=== PATIENT | female | born 1985 | race Caucasian/White ===

== ENCOUNTER 2018-04-27 14:32 | Emergency (ER) | payer MEDICAID ==
[~2018-04-27] VITALS: Ht 175.3 cm; Wt 55.8 kg
[~2018-04-27 14:32] MED LIST: IBUP-1222 PO; OXYC-302 PO
[2018-04-27] MEDS ORDERED: ONDANSETRON ODT 4 MG ONE (14:56)
[2018-04-27] MEDS ORDERED: ONDANSETRON ODT 4 MG PO ONE (15:00)
[2018-04-27 15:30] LABS: MICROSCOPIC INDICATED
[2018-04-27 15:31] LABS: CULTURE INDICATED? YES
[2018-04-27 15:35] LABS: BASOPHILS # (AUTO) 0.12 x10^3/uL (0-0.1); BASOPHILS % (AUTO) 1 % (0-1); EOSINOPHILS # (AUTO) 0.03 x10^3/uL (0-0.4); EOSINOPHILS % (AUTO) 0 % (1-7); LYMPHOCYTES # (AUTO) 2.11 x10^3/uL (1-3.4); LYMPHOCYTES % (AUTO) 25 % (22-44); MD NO; MEAN PLATELET VOLUME 8.9 fL (7.4-10.4); MONOCYTES # (AUTO) 0.67 x10^3/uL (0.2-0.8); MONOCYTES % (AUTO) 8 % (2-9); NEUTROPHILS # (AUTO) 5.47 x10^3/uL (1.8-6.8); NEUTROPHILS % (AUTO) 65 % (42-75); PLATELET COUNT 285 x10^3/uL (130-400); RED BLOOD COUNT 4.31 x10^6/uL (3.82-5.3)
[2018-04-27 15:42] LABS: ALBUMIN 3.8 g/dL (3.4-5.0); ANION GAP 5 mmol/L (5-15); CALCIUM 8.6 mg/dL (8.5-10.1); CHLORIDE 110 mmol/L (98-107)
[2018-04-27 15:46] LABS: ALANINE AMINOTRANSFERASE 20 U/L (12-78); ALKALINE PHOSPHATASE 51 U/L (45-117); BILIRUBIN,TOTAL 0.8 mg/dL (0.2-1.0); CREATININE 0.78 mg/dL (0.55-1.02); TOTAL PROTEIN 6.7 g/dL (6.4-8.2)
[2018-04-27] MEDS ORDERED: PHENAZOPYRIDINE 200 MG TABLET PO ONE (16:00)
[2018-04-27] MEDS ORDERED: PHENAZOPYRIDINE 100 MG TABLET ONE (16:07)
[2018-04-27 16:35] VITALS: BP 112/64
== END 2018-04-27 16:37 | disposition home or self-care (01) ==
LOC: ED 16:25
DX: N30.01 Acute cystitis with hematuria (principal); Z76.0 Encounter for issue of repeat prescription
CPT/HCPCS: 36415; 80053; 81001; 81025; 85025; 87077; 87086; 99284; Q0162

== ENCOUNTER 2018-12-25 12:10 | Emergency (ER) | payer MEDICAID ==
[~2018-12-25] VITALS: Ht 175.3 cm; Wt 57.9 kg
[2018-12-25 13:13] LABS: BASOPHILS # (AUTO) 0.08 x10^3/uL (0-0.1); BASOPHILS % (AUTO) 1 % (0-1); EOSINOPHILS # (AUTO) 0.02 x10^3/uL (0-0.4); EOSINOPHILS % (AUTO) 0 % (1-7); LYMPHOCYTES # (AUTO) 2.05 x10^3/uL (1-3.4); LYMPHOCYTES % (AUTO) 21 % (22-44); MD NO; MEAN CORPUSCULAR HEMOGLOBIN 34.1 pg (27.0-34.8); MEAN CORPUSCULAR HGB CONC 34.5 g/dL (32.4-35.8); MEAN CORPUSCULAR VOLUME 98.8 fL (80-100); MEAN PLATELET VOLUME 8.6 fL (7.4-10.4); MONOCYTES # (AUTO) 0.71 x10^3/uL (0.2-0.8); MONOCYTES % (AUTO) 7 % (2-9); NEUTROPHILS % (AUTO) 71 % (42-75); PLATELET COUNT 291 x10^3/uL (130-400); RED BLOOD COUNT 4.17 x10^6/uL (3.82-5.3); RED CELL DISTRIBUTION WIDTH 13.6 % (9.6-15.2)
[2018-12-25 13:23] LABS: ALBUMIN 4.3 g/dL (3.4-5.0); ANION GAP 5 mmol/L (5-15); CALCIUM 9.1 mg/dL (8.5-10.1); CHLORIDE 110 mmol/L (98-107)
[2018-12-25] MEDS ORDERED: HYDROcodone/APAP 5/325 TABLET PO PRN (15:00)
[2018-12-25] MEDS ORDERED: KETOROLAC 30 MG/1 ML IM ONE (15:00)
[2018-12-25] MEDS ORDERED: KETOROLAC 30 MG/1 ML ONE (15:20)
[2018-12-25] MEDS ORDERED: HYDROcodone/APAP 5/325 TABLET ONE (15:21)
[2018-12-25] MEDS ORDERED: CEFTRIAXONE 250 MG IM ONE (16:00)
[2018-12-25] MEDS ORDERED: AZITHROMYCIN 250 MG TABLET PO ONE (16:00)
--- NOTE | 2018-12-25 16:08 | NUR ---
PELVIC EXAM COMPLETED, PT TOLERATED WELL
[2018-12-25 16:09] LABS: HCG UR SG 1.017 (1.003-1.030); MICROSCOPIC INDICATED
[2018-12-25 16:10] LABS: CULTURE INDICATED? YES
[2018-12-25 16:21] LABS: CLUE CELLS PRESENT (NONE SEEN)
[2018-12-25 16:22] LABS: WET PREP WBCS MODERATE (FEW)
[2018-12-25] MEDS ORDERED: CEFTRIAXONE 250 MG ONE (16:35)
[2018-12-25] MEDS ORDERED: AZITHROMYCIN 250 MG TABLET ONE (16:35)
[2018-12-25] MEDS ORDERED: LIDOCAINE-MPF 1%, 5ML ONE (16:35)
[2018-12-25] MEDS ORDERED: metroNIDAZOLE 500 MG TABLET ONE (16:59)
[2018-12-25] MEDS ORDERED: metroNIDAZOLE 500 MG TABLET PO ONE (17:00)
[2018-12-25 17:19] VITALS: BP 92/59
== END 2018-12-25 17:21 | disposition home or self-care (01) ==
LOC: ED 16:03
DX: N76.0 Acute vaginitis (principal); B96.89 Other specified bacterial agents as the cause of diseases classified elsewhere; F17.200 Nicotine dependence, unspecified, uncomplicated
CPT/HCPCS: 36415; 80048; 81001; 81025; 82040; 84703; 85025; 87077; 87086; 87186; 87210; 87491; 87591; 87808; 96372; 99284; J0696; J1885

== ENCOUNTER → 2019-02-28 | Outpatient (CLI) | payer MEDICAID ==
[~2019-02-28] MED LIST changes: +ACET-1600 PO
[2019-02-28 14:29] LABS: CULTURE INDICATED? YES; MICROSCOPIC INDICATED
== END | disposition home or self-care (01) ==
LOC: STAR 13:48
PROVIDERS: ATTEND Obstetrics & Gynecology Female Pelvic Medicine and Reconstructive Surgery
DX: Z01.818 Encounter for other preprocedural examination (principal); N92.5 Other specified irregular menstruation; N94.6 Dysmenorrhea, unspecified; N39.3 Stress incontinence (female) (male); N81.10 Cystocele, unspecified
CPT/HCPCS: 81001; 87077; 87086; 87186

== ENCOUNTER 2019-03-05 08:28 | Day surgery (SDC) | payer MEDICAID ==
[2019-02-28 15:02] VITALS: BP 104/70
[~2019-03-05] VITALS: Ht 175.3 cm; Wt 56.0 kg
[~2019-03-05 08:28] MED LIST changes: +BUPIVACAINE/PF 0.25% ONE; +NEOMY/POLYMYXIN B GU IRR. 1 ML ONE
[2019-03-05] MEDS ORDERED: LACTATED RINGERS 1,000 ML IV SCH (08:42)
[2019-03-05 09:00] VITALS: BP 104/70
[2019-03-05] MEDS ORDERED: ACETAMINOPHEN 500 MG TABLET PO ONE (09:00)
[2019-03-05] MEDS ORDERED: GABAPENTIN 300 MG CAPSULE PO ONE (09:00)
[2019-03-05] MEDS ORDERED: DIAZEPAM 5 MG TABLET PO ONE (09:00)
[2019-03-05] MEDS ORDERED: SCOPOLAMINE PATCH, 1.5MG PATCH.TD72 TD ONE (09:00)
[2019-03-05 09:34] LABS: HCG UR SG 1.014 (1.003-1.030)
[2019-03-05] MEDS ORDERED: MIDAZOLAM 1 MG/ML, 2ML ONE (10:53)
[2019-03-05] MEDS ORDERED: CEFAZOLIN 1,000 MG ONE ×2 (11:01)
[2019-03-05] MEDS ORDERED: ONDANSETRON 2MG/ML, 2ML ONE ×2 (11:01)
[2019-03-05] MEDS ORDERED: LIDOCAINE-MPF 2% ,5ML ONE (11:01)
[2019-03-05] MEDS ORDERED: ROCURONIUM 10MG/ML,5ML ONE (11:01)
[2019-03-05] MEDS ORDERED: FENTANYL PF 250 MCG/5ML ONE (11:01)
[2019-03-05] MEDS ORDERED: PROPOFOL 10 MG/ML, 20ML ONE (11:01)
[2019-03-05] MEDS ORDERED: DEXAMETHASONE 4 MG/ML, 1ML ONE ×2 (11:01)
[2019-03-05] MEDS ORDERED: SUCCINYLCHOLINE 20 MG/ML, 10ML ONE (11:01)
[2019-03-05] MEDS ORDERED: EPHEDRINE 50 MG/ML, 1ML ONE (11:03)
[2019-03-05] MEDS ORDERED: MIDAZOLAM 1 MG/ML, 2ML IV PRN (11:30)
[2019-03-05] MEDS ORDERED: ONDANSETRON 2MG/ML, 2ML IV PRN (11:30)
[2019-03-05] MEDS ORDERED: OXYcodone 5 MG/5 ML ORAL.SOL UDC PO PRN (11:30)
[2019-03-05] MEDS ORDERED: ONDANSETRON ODT 8 MG PO PRN (11:30)
[2019-03-05] MEDS ORDERED: ALBUTEROL SULFATE 2.5 MG/3 ML NPPB PRN (11:30)
[2019-03-05] MEDS ORDERED: MEPERIDINE/PF 25MG/0.5ML IVPush PRN (11:30)
[2019-03-05] MEDS ORDERED: MORPHINE SULFATE 4 MG/ML, 1ML IVPush PRN (11:30)
[2019-03-05] MEDS ORDERED: EPHEDRINE 50 MG/ML, 1ML IVPush PRN (11:30)
[2019-03-05] MEDS ORDERED: PROMETHAZINE 25 MG/ML, 1ML IV PRN (11:30)
[2019-03-05] MEDS ORDERED: hydrALAzine 20 MG/ML, 1ML IV PRN (11:30)
[2019-03-05] MEDS ORDERED: LABETALOL 5MG/ML, 20ML IV PRN (11:30)
[2019-03-05] MEDS ORDERED: PROMETHAZINE 12.5 MG SUPP PR PRN (11:30)
[2019-03-05] MEDS ORDERED: HYDROmorphone 2 MG/ML, 1ML IVPush PRN (11:30)
[2019-03-05] MEDS ORDERED: DIAZEPAM 5 MG/ML, 2ML IVPush PRN (11:30)
[2019-03-05] MEDS ORDERED: HALOPERIDOL 5 MG/ML IV PRN (11:30)
[2019-03-05] MEDS ORDERED: LIDOCAINE 2%, 6 ML JEL.PF.APP MM ONE (11:32)
[2019-03-05] MEDS ORDERED: KETOROLAC 30 MG/1 ML ONE (12:37)
[2019-03-05] MEDS ORDERED: FENTANYL PF 100 MCG/2ML ONE (13:13)
[2019-03-05] MEDS: FENTANYL PF 100 MCG/2ML IV PRN ×3 (13:15→13:45)
[2019-03-05] MEDS ORDERED: OXYcodone 5 MG/5 ML ORAL.SOL UDC ONE (13:20)
[2019-03-05] MEDS ORDERED: HYDROmorphone 2 MG/ML, 1ML ONE (13:50)
== END 2019-03-05 16:40 | disposition home or self-care (01) ==
LOC: OUT 08:28
PROVIDERS: ATTEND Obstetrics & Gynecology Female Pelvic Medicine and Reconstructive Surgery
DX: N92.1 Excessive and frequent menstruation with irregular cycle (principal); N83.8 Other noninflammatory disorders of ovary, fallopian tube and broad ligament; N94.6 Dysmenorrhea, unspecified; N81.89 Other female genital prolapse; N39.46 Mixed incontinence; N32.81 Overactive bladder; J44.9 Chronic obstructive pulmonary disease, unspecified; Z98.51 Tubal ligation status; Z72.89 Other problems related to lifestyle
CPT/HCPCS: 57265; 57282; 57288; 58552; 81025; 88307; C1771; J0330; J0690; J1100; J1170; J1885; J2250; J2405; J2704; J3010; J3490; J7120

== ENCOUNTER 2019-09-09 14:58 | Emergency (ER) | payer MEDICAID ==
[~2019-09-09] VITALS: Ht 175.3 cm; Wt 55.5 kg
[~2019-09-09 14:58] MED LIST changes: -BUPIVACAINE/PF 0.25% ONE; -NEOMY/POLYMYXIN B GU IRR. 1 ML ONE
[2019-09-09] MEDS ORDERED: HYDROcodone/APAP 5/325 TABLET PO ONE (15:30)
[2019-09-09] MEDS ORDERED: HYDROcodone/APAP 5/325 TABLET ONE (15:46)
[2019-09-09] MEDS ORDERED: TRANEXAMIC ACID 100 MG/ML, 10ML TP ONE (16:30)
[2019-09-09 16:41] VITALS: BP 112/64
== END 2019-09-09 16:51 | disposition home or self-care (01) ==
LOC: ED 16:44
DX: S52.102A Unspecified fracture of upper end of left radius, initial encounter for closed fracture (principal); W20.8XXA Other cause of strike by thrown, projected or falling object, initial encounter; Y93.89 Activity, other specified; Y92.413 State road as the place of occurrence of the external cause; Y99.8 Other external cause status
CPT/HCPCS: 29105; 99283

== ENCOUNTER 2021-02-22 08:11 | Emergency (ER) | payer MEDICAID ==
[~2021-02-22] VITALS: Ht 175.3 cm; Wt 54.2 kg
[~2021-02-22 08:11] MED LIST changes: -OXYC-302 PO; +OXYC1TAB14 PO
[2021-02-22 08:25] VITALS: BP 111/79
--- NOTE | 2021-02-22 08:25 | NUR ---
PT PRESENTS TO ED W C/O RIGHT HAND PAIN AND SWELLING AFTER ALTERCATION. CMS INTACT. ERPA AT BEDSIDE. REFUSING TO REPORT ALTERCATION.
[2021-02-22] MEDS ORDERED: DIPH,PERTUSS(ACELL),TET VAC/PF 0.5 ML IM-VACC ONE ×2 (08:30→08:35)
--- NOTE | 2021-02-22 08:48 | NUR ---
ICE PACK APPLIED TO R HAND
[2021-02-22] MEDS ORDERED: NEOSPORIN OINT. PKT 1 PACKET ONE (09:15)
--- NOTE | 2021-02-22 09:46 | NUR ---
discharge instructions reviewed, pt verbalized understanding. ambulatory to discharge desk w steady gait.
== END 2021-02-22 09:48 | disposition home or self-care (01) ==
LOC: ED 09:08
DX: S60.221A Contusion of right hand, initial encounter (principal); F17.210 Nicotine dependence, cigarettes, uncomplicated; Y04.0XXA Assault by unarmed brawl or fight, initial encounter; Y93.89 Activity, other specified; Y92.009 Unspecified place in unspecified non-institutional (private) residence as the place of occurrence of the external cause; Y99.8 Other external cause status
CPT/HCPCS: 29125; 90471; 90715; 99406

== ENCOUNTER 2021-05-02 05:24 | Emergency (ER) | payer MEDICAID ==
[~2021-05-02] VITALS: Ht 175.3 cm; Wt 55.7 kg
[2021-05-02 05:54] VITALS: BP 106/78
[2021-05-02] MEDS ORDERED: IBUPROFEN 600 MG TABLET ONE (06:04)
--- NOTE | 2021-05-02 06:09 | NUR ---
F/U AND D/C INSTRUCTIONS GIVEN TO PT WITH PRESCRIPTION AND SHE V/U. PT AMBULATED TO D/C DESK, AND GIVEN INSTRUCTIONS TO ELEVATE THE RIGHT FOOT WHEN AT HOME.
[2021-05-02] MEDS ORDERED: IBUPROFEN 200 MG TABLET PO ONE (06:30)
== END 2021-05-02 06:11 | disposition home or self-care (01) ==
LOC: ED 06:00
DX: S92.414A Nondisplaced fracture of proximal phalanx of right great toe, initial encounter for closed fracture (principal); X58.XXXA Exposure to other specified factors, initial encounter; Y93.89 Activity, other specified; Y92.89 Other specified places as the place of occurrence of the external cause; Y99.8 Other external cause status
CPT/HCPCS: 99283